=== PATIENT | female | born 1950 | race Two or more races ===

== ENCOUNTER 2019-12-10 11:03 | Emergency (ER) | payer OTHER, MEDICAID ==
[~2019-12-10] VITALS: Ht 152.4 cm; Wt 77.1 kg
[~2019-12-10 11:03] MED LIST: ASPI81TA69 PO; BENA10TA9 PO; DILT180C9 PO; DOCO10CR2 EX; FOLI5CAP PO; HYDR-4188 PO; LOVA10TA54 PO; OMEP20CA74 PO
[2019-12-10 12:03] LABS: Urine Bacteria NONE SEEN /hpf (None Seen); Urine Blood Negative /uL (Negative); Urine Hyaline Cast FEW /lpf (0 - 2); Urine Specific Gravity 1.014 (1.001-1.035); Urine WBC 1 /hpf (0 - 5)
[2019-12-10 12:28] LABS: Basophils # (auto) 0 uL; Basophils % (auto) 1.4 % (0.0-2.0); Eosinophils # (auto) 0.1 uL; Eosinophils % (auto) 2.1 % (0.0-7.0); Hematocrit 35.6 % (36.0-46.0); Lymphocytes % (auto) 31.8 % (10.0-50.0); Mean Corpuscular Hemoglobin 32.4 pg (28.0-32.0); Mean Corpuscular Hgb Conc. 33.8 g/dL (32.0-36.0); Mean Corpuscular Volume 95.7 fL (80.0-100.0); Monocytes # (auto) 0.3 uL; Monocytes % (auto) 8.4 % (0.0-12.0); Neutrophils # (auto) 1.9 uL; Neutrophils % (auto) 56.3 % (37.0-80.0); Platelet Count (auto) 167 10^3/uL (140-450); Red Blood Cells 3.72 10^6/uL (4.0-5.20); White Blood Cell 3.3 10^3/uL (4.4-10.8)
[2019-12-10 12:42] LABS: Albumin 3.6 g/dL (3.4-5.0); BUN/Creatinine Ratio 11.7; Calcium 9.1 mg/dL (8.5-10.1); Potassium 4.3 mmol/L (3.5-5.1)
[2019-12-10 12:45] LABS: Bilirubin, Total 0.6 mg/dL (0.2-1.0); Total Protein 7.4 g/dL (6.4-8.2)
[2019-12-10 18:00] VITALS: BP 180/67
[2019-12-10] MEDS ORDERED: MORPHINE SULFATE 4 MG/ML SYR/VIAL IV ONE (18:15)
[2019-12-10] MEDS ORDERED: ONDANSETRON HCL 4 MG/2 ML VIAL IV ONE (18:15)
[2019-12-10] MEDS ORDERED: HYDROmorphone HCL 2 MG/ML VL IM ONE (18:45)
[2019-12-10] MEDS ORDERED: ONDANSETRON ODT 4 MG TAB PO ONE (18:45)
== END 2019-12-10 20:27 | disposition home or self-care (01) ==
LOC: ER 11:03
DX: L76.34 Postprocedural seroma of skin and subcutaneous tissue following other procedure (principal); J45.909 Unspecified asthma, uncomplicated; E78.5 Hyperlipidemia, unspecified; I10 Essential (primary) hypertension; Z90.49 Acquired absence of other specified parts of digestive tract; Z90.710 Acquired absence of both cervix and uterus; Z87.891 Personal history of nicotine dependence; Z86.73 Personal history of transient ischemic attack (TIA), and cerebral infarction without residual deficits
CPT/HCPCS: 36415; 72128; 72131; 80053; 81001; 85025; 96372; 99284; J1170; Q0162

== ENCOUNTER 2020-01-25 17:00 | Emergency (ER) | payer OTHER, MEDICAID ==
[~2020-01-25] VITALS: Ht 162.6 cm; Wt 69.9 kg
[2020-01-25] MEDS ORDERED: MORPHINE SULFATE 4 MG/ML SYR/VIAL IV ONE (18:45)
[2020-01-25] MEDS ORDERED: SODIUM CHLORIDE 0.9% 1,000 ML IV ONE (18:45)
[2020-01-25] MEDS ORDERED: ONDANSETRON HCL 4 MG/2 ML VIAL IV ONE (18:45)
[2020-01-25 19:32] LABS: Basophils # (auto) 0 10 ^3/uL (0-0.2); Basophils % (auto) 0.2 % (0.0-2.0); Eosinophils # (auto) 0.2 10 ^3/uL (0-0.8); Hematocrit 31.3 % (36.0-46.0); Hemoglobin 10.6 g/dL (12.2-16.2); Lymphocytes # (auto) 0.2 10 ^3/uL (0.4-5.4); Lymphocytes % (auto) 2.4 % (10.0-50.0); Mean Corpuscular Hemoglobin 31.6 pg (28.0-32.0); Mean Corpuscular Hgb Conc. 33.7 g/dL (32.0-36.0); Mean Corpuscular Volume 93.6 fL (80.0-100.0); Monocytes # (auto) 0.4 10 ^3/uL (0-1.3); Monocytes % (auto) 5.6 % (0.0-12.0); Neutrophils # (auto) 6.2 10 ^3/uL (1.6-8.6); Neutrophils % (auto) 88.8 % (37.0-80.0); Nucleated Red Blood Cells % 0.1 %; Platelet Count (auto) 200 10^3/uL (140-450); Red Blood Cells 3.34 10^6/uL (4.0-5.20); Red Cell Distribution Width 14.2 % (11.8-14.3)
[2020-01-25 19:49] LABS: Alanine Aminotransferase 17 U/L (13-56); Albumin 2.3 g/dL (3.4-5.0); Anion Gap 9 (5-15); Aspartate Aminotransferase 55 U/L (15-37); BUN/Creatinine Ratio 26.9; Blood Urea Nitrogen 46 mg/dL (7-18); Calcium 8.7 mg/dL (8.5-10.1); Carbon Dioxide 19 mmol/L (21-32); Chloride 103 mmol/L (98-107); GFR African American 38 mL/min; GFR Non-African American 31 mL/min; Glucose 113 mg/dL (74-106); Potassium 3.4 mmol/L (3.5-5.1); Sodium 131 mmol/L (136-145)
[2020-01-25 19:54] LABS: Alkaline Phosphatase 91 U/L (45-117); Bilirubin, Total 0.5 mg/dL (0.2-1.0); Total Protein 6.5 g/dL (6.4-8.2)
[2020-01-25 20:19] VITALS: BP 118/64
[2020-01-25 20:25] LABS: Urine WBC None Seen /hpf (0 - 5)
[2020-01-25 20:42] LABS: Urine Amorphous Crystal FEW /hpf (None Seen); Urine Bacteria FEW /hpf (None Seen); Urine Blood 2+ /uL (Negative); Urine Hyaline Cast MOD /lpf (0 - 2); Urine Mucus FEW (None Seen); Urine Specific Gravity 1.014 (1.001-1.035)
== END 2020-01-25 21:49 | disposition home or self-care (01) ==
LOC: ER 17:00
DX: M54.5 Low back pain (principal); G89.29 Other chronic pain; I13.0 Hypertensive heart and chronic kidney disease with heart failure and stage 1 through stage 4 chronic kidney disease, or unspecified chronic kidney disease; N18.9 Chronic kidney disease, unspecified; I50.9 Heart failure, unspecified; J45.909 Unspecified asthma, uncomplicated; E78.5 Hyperlipidemia, unspecified; Z90.49 Acquired absence of other specified parts of digestive tract; Z90.710 Acquired absence of both cervix and uterus; Z86.73 Personal history of transient ischemic attack (TIA), and cerebral infarction without residual deficits
CPT/HCPCS: 36415; 80053; 81001; 83880; 84484; 85025; 93005; 96361; 96374; 96375; 99285; J2270; J2405; J7030

== ENCOUNTER 2020-01-29 21:03 | Emergency (ER) | payer OTHER, MEDICAID ==
[~2020-01-29] VITALS: Ht 162.6 cm; Wt 77.1 kg
[2020-01-29] MEDS ORDERED: PIPERACILLIN-TAZOB 3.375GM 100 ML IV ONE (22:00)
[2020-01-29 22:58] LABS: Basophils # (auto) 0.1 10 ^3/uL (0-0.2); Basophils % (auto) 0.9 % (0.0-2.0); Eosinophils # (auto) 0 10 ^3/uL (0-0.8); Eosinophils % (auto) 0.1 % (0.0-7.0); Hematocrit 39.1 % (36.0-46.0); Hemoglobin 13.2 g/dL (12.2-16.2); Lymphocytes # (auto) 0.5 10 ^3/uL (0.4-5.4); Lymphocytes % (auto) 2.9 % (10.0-50.0); Mean Corpuscular Hemoglobin 31.6 pg (28.0-32.0); Mean Corpuscular Hgb Conc. 33.9 g/dL (32.0-36.0); Mean Corpuscular Volume 93.2 fL (80.0-100.0); Monocytes # (auto) 0.8 10 ^3/uL (0-1.3); Monocytes % (auto) 5.1 % (0.0-12.0); Neutrophils # (auto) 14.9 10 ^3/uL (1.6-8.6); Platelet Count (auto) 153 10^3/uL (140-450); Red Blood Cells 4.19 10^6/uL (4.0-5.20); Red Cell Distribution Width 14.6 % (11.8-14.3); White Blood Cell 16.4 10^3/uL (4.4-10.8)
[2020-01-29] MEDS ORDERED: OXYCODONE W/ ACETAMINOPHEN 5/325MG TABLET PO ONE (23:00)
[2020-01-29 23:16] LABS: Albumin 1.5 g/dL (3.4-5.0); Anion Gap 10 (5-15); BUN/Creatinine Ratio 39.5; Blood Urea Nitrogen 32 mg/dL (7-18); Carbon Dioxide 19 mmol/L (21-32); Chloride 106 mmol/L (98-107); GFR African American 90 mL/min; GFR Non-African American 74 mL/min; Glucose 127 mg/dL (74-106); Magnesium 1.8 mg/dL (1.6-2.6); Potassium 4.1 mmol/L (3.5-5.1); Sodium 135 mmol/L (136-145)
[2020-01-29 23:17] LABS: Lactic Acid w/Reflex 2.9 mmol/L (0.4-2.0)
[2020-01-29 23:19] LABS: Alanine Aminotransferase 17 U/L (13-56); Alkaline Phosphatase 116 U/L (45-117); Aspartate Aminotransferase 49 U/L (15-37); Bilirubin, Total 1.4 mg/dL (0.2-1.0); Total Protein 6.7 g/dL (6.4-8.2)
[2020-01-30] MEDS ORDERED: CLINDAMYCIN 600MG IV 50 ML IV ONE (00:45)
[2020-01-30] MEDS ORDERED: ONDANSETRON HCL 4 MG/2 ML VIAL IV ONE (03:15)
[2020-01-30] MEDS ORDERED: HYDROmorphone HCL 2 MG/ML VL IV ONE (03:15)
[2020-01-30] MEDS ORDERED: SODIUM CHLORIDE 0.9% 2,000 ML IV ONE (03:45)
[2020-01-30 04:31] LABS: INR 1.23 (0.9-1.15); Partial Thromboplastin Time 30.9 sec (23.64-32.05)
[2020-01-30] MEDS ORDERED: HEPARIN DRIP/D5W 100UNITS/ML 250 ML IV SCH ×3 (04:38→04:49)
[2020-01-30] MEDS ORDERED: HEPARIN SODIUM (PORCINE) 5000 UNITS/ML 1ML VIAL IV ONE (04:45)
[2020-01-30 05:12] VITALS: BP 102/44
[2020-01-30 05:44] LABS: Basophils # (auto) 0 10 ^3/uL (0-0.2); Basophils % (auto) 0.3 % (0.0-2.0); Eosinophils # (auto) 0 10 ^3/uL (0-0.8); Eosinophils % (auto) 0.1 % (0.0-7.0); Hematocrit 31.2 % (36.0-46.0); Hemoglobin 10.7 g/dL (12.2-16.2); Lymphocytes # (auto) 0.5 10 ^3/uL (0.4-5.4); Lymphocytes % (auto) 4.8 % (10.0-50.0); Mean Corpuscular Hemoglobin 31.8 pg (28.0-32.0); Mean Corpuscular Hgb Conc. 34.3 g/dL (32.0-36.0); Mean Corpuscular Volume 92.9 fL (80.0-100.0); Monocytes # (auto) 0.7 10 ^3/uL (0-1.3); Monocytes % (auto) 6.7 % (0.0-12.0); Neutrophils % (auto) 88.1 % (37.0-80.0); Platelet Count (auto) 119 10^3/uL (140-450); Red Blood Cells 3.36 10^6/uL (4.0-5.20); Red Cell Distribution Width 14.8 % (11.8-14.3); White Blood Cell 10.2 10^3/uL (4.4-10.8)
[2020-01-30] MEDS ORDERED: SODIUM CHLOR 0.9% PF (SALINE LOCK) 10ML VIAL/SYR IV SCH (06:00)
[2020-01-31] MEDS ORDERED: ASPirin 81 mg TAB PO SCH (10:00)
== END 2020-01-30 05:30 | disposition short-term general hospital (02) ==
LOC: EDBD 21:03 → ER 21:06
DX: I24.9 Acute ischemic heart disease, unspecified (principal); R07.89 Other chest pain; M19.90 Unspecified osteoarthritis, unspecified site; J45.909 Unspecified asthma, uncomplicated; E78.5 Hyperlipidemia, unspecified; Z86.73 Personal history of transient ischemic attack (TIA), and cerebral infarction without residual deficits; Z88.2 Allergy status to sulfonamides; Z91.041 Radiographic dye allergy status
CPT/HCPCS: 36415; 72131; 80053; 83605; 83735; 84484; 85025; 85610; 85730; 93005; 96365; 96366; 96368; 96375; 99285; J2543; J7030

== ENCOUNTER 2023-04-16 22:10 | Emergency (ER) | payer OTHER, MEDICAID ==
[~2023-04-16] VITALS: Ht 152.4 cm; Wt 86.3 kg
[~2023-04-16 22:10] MED LIST changes: +BENA-19 PO; -BENA10TA9 PO
[2023-04-16 22:23] VITALS: BP 147/80
[2023-04-17] MEDS ORDERED: OXYC-963 PO ×2 (02:08)
[2023-04-17] MEDS ORDERED: OXYCODONE W/ ACETAMINOPHEN 5/325MG TABLET PO ONE (02:15)
[2023-04-18] MEDS ORDERED: PERCOT PO ×3 (18:34→23:49)
== END 2023-04-17 02:26 | disposition home or self-care (01) ==
LOC: ER 22:14
DX: M25.562 Pain in left knee (principal); F41.9 Anxiety disorder, unspecified; E78.5 Hyperlipidemia, unspecified; I11.0 Hypertensive heart disease with heart failure; I50.89 Other heart failure; Z90.710 Acquired absence of both cervix and uterus; Z87.891 Personal history of nicotine dependence; Z88.2 Allergy status to sulfonamides; Z91.040 Latex allergy status; Z79.899 Other long term (current) drug therapy; Z86.73 Personal history of transient ischemic attack (TIA), and cerebral infarction without residual deficits
CPT/HCPCS: 73562

== ENCOUNTER 2023-07-08 12:57 | Inpatient (IN) | payer OTHER, MEDICAID ==
[~2023-07-08] VITALS: Ht 152.4 cm; Wt 87.2 kg
[~2023-07-08 12:57] MED LIST changes: +PERCOT PO
[2023-07-08 16:36] LABS: Basophils # (auto) 0.1 10 ^3/uL (0-0.2); Basophils % (auto) 0.7 % (0.0-2.0); Eosinophils # (auto) 0.2 10 ^3/uL (0-0.8); Eosinophils % (auto) 2.6 % (0.0-7.0); Hematocrit 34.1 % (36.0-46.0); Hemoglobin 11.1 g/dL (12.2-16.2); Lymphocytes # (auto) 1.1 10 ^3/uL (0.4-5.4); Lymphocytes % (auto) 12.4 % (10.0-50.0); Mean Corpuscular Hemoglobin 30.4 pg (28.0-32.0); Mean Corpuscular Hgb Conc. 32.5 g/dL (32.0-36.0); Mean Corpuscular Volume 93.6 fL (80.0-100.0); Monocytes # (auto) 0.6 10 ^3/uL (0-1.3); Monocytes % (auto) 6.8 % (0.0-12.0); Neutrophils % (auto) 77.5 % (37.0-80.0); Nucleated Red Blood Cells % 0.1 %; Red Blood Cells 3.65 10^6/uL (4.0-5.20); Red Cell Distribution Width 14.2 % (11.8-14.3)
[2023-07-08 17:05] LABS: Alanine Aminotransferase 15 U/L (7-40); Albumin 4.1 g/dL (3.2-4.8); Alkaline Phosphatase 136 U/L (46-116); Anion Gap 7.7 (5-15); Aspartate Aminotransferase 24 U/L (13-40); BUN/Creatinine Ratio 18.6 (10.0-20.0); Bilirubin, Total 0.4 mg/dL (0.2-1.0); Blood Urea Nitrogen 16 mg/dL (9-23); Carbon Dioxide 20.3 mmol/L (20-30); Chloride 106 mmol/L (98-107); Glucose 105 mg/dL (74-106); Potassium 4.7 mmol/L (3.5-5.1); Sodium 134 mmol/L (136-145); Total Protein 6.5 g/dL (5.7-8.2)
[2023-07-08 17:13] LABS: CRP High Sensitivity 13.23 mg/dL (<1.0)
[2023-07-08 17:39] LABS: Erythrocyte Sedimentation Rate 94 mm/hr (0-20)
[2023-07-08] MEDS ORDERED: VANCOMYCIN 1GM/250ML 250 ML IV ONE (20:45)
[2023-07-08 21:48] LABS: Urine Bacteria NONE SEEN /hpf (None Seen); Urine Blood Negative /uL (Negative); Urine Clarity Clear (Clear); Urine Color Yellow (Yellow); Urine Hyaline Cast FEW /lpf (0 - 2); Urine Protein, UAD 1+ (Negative); Urine Specific Gravity 1.024 (1.001-1.035); Urine WBC 2 /hpf (0 - 5); Urine pH 5.5 (5.0-8.0)
[2023-07-08] MEDS ORDERED: HYDROcodone-ACET 10/325MG TAB PO ONE (23:00)
[2023-07-08] MEDS ORDERED: VANCOMYCIN PER PHARMACY 0 MG IV SCH (23:00)
[2023-07-08] MEDS ORDERED: ACETAMINOPHEN 325 MG TAB PO PRN (23:00)
[2023-07-08] MEDS ORDERED: ONDANSETRON HCL 4 MG/2 ML VIAL IV PRN (23:00)
[2023-07-08] MEDS ORDERED: ALBUTEROL SULF 2.5 MG/0.5ML(0.5%) NEB SOLN NEB PRN (23:15)
[2023-07-08] MEDS ORDERED: IPRATROPIUM BROM 0.5 MG/2.5ML INH SOL NEB PRN (23:15)
[2023-07-09] VITALS (9 sets, daily range): BP systolic 115–157; BP diastolic 50–63; PULSE 74–88; RESP 13–20; TEMP 97.9–98.5; O2SAT 92–97
[2023-07-09] MEDS: HYDROcodone-ACET 10/325MG TAB PO PRN ×3 (05:28→14:20)
[2023-07-09 06:47] LABS: Basophils # (auto) 0.1 10 ^3/uL (0-0.2); Eosinophils # (auto) 0.1 10 ^3/uL (0-0.8); Hemoglobin 10.9 g/dL (12.2-16.2)
[2023-07-09 06:49] LABS: Basophils % (auto) 1.1 % (0.0-2.0); Lymphocytes # (auto) 0.8 10 ^3/uL (0.4-5.4); Lymphocytes % (auto) 10.9 % (10.0-50.0); Mean Corpuscular Hemoglobin 30.5 pg (28.0-32.0); Mean Corpuscular Hgb Conc. 32.9 g/dL (32.0-36.0); Mean Corpuscular Volume 92.8 fL (80.0-100.0); Monocytes # (auto) 0.4 10 ^3/uL (0-1.3); Monocytes % (auto) 5.8 % (0.0-12.0); Neutrophils # (auto) 6.3 10 ^3/uL (1.6-8.6); Neutrophils % (auto) 81.2 % (37.0-80.0); Nucleated Red Blood Cells % 0.2 %; Red Blood Cells 3.56 10^6/uL (4.0-5.20); White Blood Cell 7.7 10^3/uL (4.4-10.8)
[2023-07-09 07:02] LABS: Alanine Aminotransferase 14 U/L (7-40); Albumin 4.3 g/dL (3.2-4.8); Alkaline Phosphatase 129 U/L (46-116); Anion Gap 11.9 (5-15); Aspartate Aminotransferase 25 U/L (13-40); Blood Urea Nitrogen 16 mg/dL (9-23); Calcium 9.4 mg/dL (8.5-10.1); Carbon Dioxide 18.1 mmol/L (20-30); Chloride 102 mmol/L (98-107); Cholesterol 126 mg/dL (< 200); Glucose 117 mg/dL (74-106); HDL Cholesterol 36 mg/dL (40-59); LDL Cholesterol 74 mg/dL (< 100); Potassium 4.8 mmol/L (3.5-5.1); Sodium 132 mmol/L (136-145); Triglycerides 84 mg/dL (< 150)
[2023-07-09 07:03] LABS: Bilirubin, Total 0.5 mg/dL (0.2-1.0); Total Protein 7.5 g/dL (5.7-8.2)
[2023-07-09 07:19] LABS: INR 1.08 (0.9-1.15); Partial Thromboplastin Time 32.3 SEC (24.5-34.5); Prothrombin Time 11.3 sec (9.3-11.8)
[2023-07-09 08:51] LABS: COVID19 ANTIGEN SOFIA FIA NEGATIVE (NEGATIVE)
[2023-07-09 08:51] LABS: Rapid Influenza A Negative (Negative); Rapid Influenza B Negative (Negative)
[2023-07-09] MEDS: ASPirin 81 mg TAB PO SCH (09:31)
[2023-07-09] MEDS: FOLIC ACID 1 MG TAB PO SCH (09:31)
[2023-07-09] MEDS: hydrOXYchloroQUINE SULFATE 200 MG TAB PO SCH ×2 (09:32→21:08)
[2023-07-09] MEDS: BENAZEPRIL HCL 10 MG TAB PO SCH (09:32)
[2023-07-09] MEDS: dilTIAZem HCL 180MG ER CAP PO SCH (09:32)
[2023-07-09] MEDS ORDERED: OMEPRAZOLE 40MG/20ML ORAL SUSP PO SCH (10:00)
[2023-07-09] MEDS ORDERED: TEMA7.5C PO (17:14)
[2023-07-09] MEDS: VANCOMYCIN 1GM/250ML 250 ML IV SCH (17:58)
[2023-07-09] MEDS: ATORVASTATIN 20 MG TAB PO SCH (21:08)
[2023-07-09] MEDS: HYDROmorphone HCL 2 MG/ML VL/or syr IV PRN (21:09)
[2023-07-10] VITALS (10 sets, daily range): BP systolic 83–135; BP diastolic 41–52; PULSE 59–86; RESP 16–20; TEMP 97.8–98.4; O2SAT 91–98
[2023-07-10] MEDS: HYDROmorphone HCL 2 MG/ML VL/or syr IV PRN ×3 (05:57→23:18)
[2023-07-10] MEDS: OMEPRAZOLE-SOD BICARB 20 MG POWDER PO SCH (10:00)
[2023-07-10] MEDS: VANCOMYCIN 1GM/250ML 250 ML IV SCH (10:01)
[2023-07-10] MEDS: dilTIAZem HCL 180MG ER CAP PO SCH (10:02)
[2023-07-10] MEDS: FOLIC ACID 1 MG TAB PO SCH (10:02)
[2023-07-10] MEDS: hydrOXYchloroQUINE SULFATE 200 MG TAB PO SCH ×2 (10:03→21:37)
[2023-07-10] MEDS: ASPirin 81 mg TAB PO SCH (10:03)
[2023-07-10] MEDS: BENAZEPRIL HCL 10 MG TAB PO SCH (10:03)
[2023-07-10] MEDS: ATORVASTATIN 20 MG TAB PO SCH (21:37)
[2023-07-11] VITALS (8 sets, daily range): BP systolic 107–128; BP diastolic 28–89; PULSE 61–72; RESP 16–20; TEMP 97.7–98.3; O2SAT 94–98
[2023-07-11] MEDS: VANCOMYCIN 1GM/250ML 250 ML IV SCH (01:00)
[2023-07-11] MEDS: FOLIC ACID 1 MG TAB PO SCH (08:55)
[2023-07-11] MEDS: ASPirin 81 mg TAB PO SCH (08:56)
[2023-07-11] MEDS: hydrOXYchloroQUINE SULFATE 200 MG TAB PO SCH ×2 (09:04→21:17)
[2023-07-11] MEDS: HYDROcodone-ACET 5/325MG TAB PO PRN ×3 (09:04→18:27)
[2023-07-11] MEDS: dilTIAZem HCL 180MG ER CAP PO SCH (10:00)
[2023-07-11] MEDS: BENAZEPRIL HCL 10 MG TAB PO SCH (10:00)
[2023-07-11] MEDS: OMEPRAZOLE-SOD BICARB 20 MG POWDER PO SCH (16:57)
[2023-07-11] MEDS ORDERED: VANCOMYCIN 500 MG in D5W 5% 100 ML IV SCH (17:00)
[2023-07-11] MEDS: ATORVASTATIN 20 MG TAB PO SCH (21:17)
[2023-07-11] MEDS: HYDROmorphone HCL 2 MG/ML VL/or syr IV PRN (21:18)
[2023-07-12 04:10] VITALS: BP 124/55; PULSE 78; RESP 16; O2SAT 94
[2023-07-12 05:00] VITALS: BP 133/47; PULSE 73; RESP 17; TEMP 98.1; O2SAT 94
[2023-07-12] MEDS: HYDROmorphone HCL 2 MG/ML VL/or syr IV PRN (06:57)
[2023-07-12 09:00] VITALS: BP 138/54; PULSE 79; RESP 16; TEMP 97.7; O2SAT 96
[2023-07-12] MEDS: hydrOXYchloroQUINE SULFATE 200 MG TAB PO SCH (09:26)
[2023-07-12] MEDS: BENAZEPRIL HCL 10 MG TAB PO SCH (09:28)
[2023-07-12] MEDS: ASPirin 81 mg TAB PO SCH (09:29)
[2023-07-12] MEDS: FOLIC ACID 1 MG TAB PO SCH (09:29)
[2023-07-12] MEDS: OMEPRAZOLE-SOD BICARB 20 MG POWDER PO SCH (09:30)
[2023-07-12] MEDS: dilTIAZem HCL 180MG ER CAP PO SCH (09:30)
[2023-07-12 10:09] VITALS: O2SAT 96
[2023-07-12 10:10] VITALS: O2SAT 96
[2023-07-12 10:51] VITALS: BP 138/54; PULSE 79; TEMP 36.7
== END 2023-07-12 12:10 | disposition home or self-care (01) | DRG 540 ==
LOC: ER 12:57 → OVERFLOW 22:56 → WEST WING 07-09 15:26
PROVIDERS: ADMIT Nurse Practitioner Family; ATTEND Family Medicine
DX: M46.27 Osteomyelitis of vertebra, lumbosacral region (principal); L02.212 Cutaneous abscess of back [any part, except buttock and flank]; T81.30XA Disruption of wound, unspecified, initial encounter; E78.5 Hyperlipidemia, unspecified; J45.909 Unspecified asthma, uncomplicated; I71.40 Abdominal aortic aneurysm, without rupture, unspecified; M06.9 Rheumatoid arthritis, unspecified; B95.62 Methicillin resistant Staphylococcus aureus infection as the cause of diseases classified elsewhere; I11.0 Hypertensive heart disease with heart failure; Z20.822 Contact with and (suspected) exposure to COVID-19; Y83.8 Other surgical procedures as the cause of abnormal reaction of the patient, or of later complication, without mention of misadventure at the time of the procedure; I50.9 Heart failure, unspecified; Z96.659 Presence of unspecified artificial knee joint; F41.9 Anxiety disorder, unspecified; M54.50 Low back pain, unspecified; K21.9 Gastro-esophageal reflux disease without esophagitis; Z82.5 Family history of asthma and other chronic lower respiratory diseases; Z83.3 Family history of diabetes mellitus; Z86.73 Personal history of transient ischemic attack (TIA), and cerebral infarction without residual deficits; Z82.49 Family history of ischemic heart disease and other diseases of the circulatory system; Z82.3 Family history of stroke; Z90.710 Acquired absence of both cervix and uterus; Z79.2 Long term (current) use of antibiotics; Z91.041 Radiographic dye allergy status; Y92.89 Other specified places as the place of occurrence of the external cause
CPT/HCPCS: 36415; 71045; 72131; 72148; 80053; 80061; 80202; 81001; 82565; 84443; 85025; 85610; 85652; 85730; 86141; 87040; 87077; 87186; 87205; 87426; 87804; 94640; G0378; J7060

== ENCOUNTER 2023-08-02 17:37 | Emergency (ER) | payer OTHER, MEDICAID ==
[~2023-08-02] VITALS: Ht 152.4 cm; Wt 77.5 kg
[~2023-08-02 17:37] MED LIST changes: -DOCO10CR2 EX; +TEMA7.5C PO
[2023-08-02 17:50] VITALS: BP 126/62; PULSE 76; RESP 20; TEMP 98.6; O2SAT 98
== END 2023-08-02 18:40 | disposition home or self-care (01) ==
LOC: ER 17:37
DX: T81.89XA Other complications of procedures, not elsewhere classified, initial encounter (principal); F41.9 Anxiety disorder, unspecified; M19.90 Unspecified osteoarthritis, unspecified site; I11.0 Hypertensive heart disease with heart failure; I50.9 Heart failure, unspecified; E78.5 Hyperlipidemia, unspecified; Z86.73 Personal history of transient ischemic attack (TIA), and cerebral infarction without residual deficits; Z90.710 Acquired absence of both cervix and uterus; Z98.890 Other specified postprocedural states; Z87.891 Personal history of nicotine dependence; Z91.040 Latex allergy status; Z88.2 Allergy status to sulfonamides; Z79.1 Long term (current) use of non-steroidal anti-inflammatories (NSAID); Z79.899 Other long term (current) drug therapy; Z79.82 Long term (current) use of aspirin; Y92.89 Other specified places as the place of occurrence of the external cause

== ENCOUNTER 2024-12-22 13:23 | Emergency (ER) | payer OTHER, MEDICAID ==
[~2024-12-22] VITALS: Ht 152.4 cm; Wt 81.8 kg
[~2024-12-22 13:23] MED LIST changes: -BENA-19 PO; +BENA10TA90 PO; -HYDR-4188 PO; +HYDR-4491 PO
[2024-12-22] MEDS ORDERED: CLINDAMYCIN 600MG IV 50 ML IV ONE (13:30)
--- NOTE | 2024-12-22 13:39 | ED.PDOC ---
History of Present Illness(SKN HPI Comments 74 y/o F, with PMHX of MRSA brought in by ambulance presents to the ED for CC of wound check. Patient states, having a wound to the lower lumbar area of her spine following cervical surgery x1year. Patent comments on, wound opening up today with nieves colored foul smelling drainage. Patient endorses on, being noncompliant with follow up appointments following cervical surgery. Per EMS, drained approximately 100-150cc from the area. Patient currently complains of back pain. Patient denies fever, cough chills, or body-aches. No other symptoms or modifying factors at this time. Chief Complaint: Wound Check Time Seen by MD: 13:10 Primary Care Provider: SCOTT History of Present Illness: Nurses Notes, Custodial Aide Notes, Medications, Allergies Allergies: Coded Allergies: Iodine (Verified Allergy, Severe, RASH AND BLISTERS, ITCHING AFTER RECEIVING IV CONTRAST W CT, 01/25/20) Sulfa Antibiotics (Verified Allergy, Unknown, 01/25/20) Home Meds Active Scripts Oxycodone W/ Acetaminophen (Percocet 5/325MG) 1 Tab Tb, 1 TAB PO Q4HP PRN, #20 TAB 0 Refills Prov:CLAUDIO STEWART 04/18/23 Reported Medications Temazepam (Restoril) 7.5 Mg Cap, 7.5 MG PO, CAP 07/09/23 Omeprazole (PRILOSEC) 20 Mg Cap, 1 CAP PO DAILY, #90 CAP 1 Refill 12/09/14 Lovastatin (Lovastatin) 10 Mg Tab, 10 MG PO, TAB 12/09/14 Folic Acid (Folic Acid) Unknown Strength Cap, PO, CAP 12/09/14 Benazepril Hcl (Benazepril Hcl) 10 Mg Tab, 1 TAB PO DAILY, #30 TAB 5 Refills 12/09/14 Aspirin (Aspirin) 81 Mg Tab, 81 MG PO DAILY, TAB 12/09/14 Diltiazem Hcl (Diltiazem Hcl) 180MG/24 Cap, 1 24 PO, CAP 12/09/14 Hydroxychloroquine Sulfate (PLAQUENIL) 200 Mg Tab, 1 TAB PO BID, #180 TAB 3 Refills 12/09/14 Information Source: Patient, Emergency Med Personnel Mode of Arrival: EMS Severity: Moderate Timing: Days Duration: Since onset Prehospital treatment: None Location: Back Mechanism: Preceding Wound Object: None Condition of Object: None Wound Type: None History of: None Associated Signs and Symptoms: Redness, Swelling, Pus Past Medical History PAST MEDICAL HISTORY: Anxiety, Arthritis, CHF, High Lipids, HTN, TIA Surgical History: Hysterectomy [employer] History: No Pertinent [employer] History Family History Family History: Reviewed,noncontributory to illness Social History Smoker: Non-Smoker, Quit Greater Than 1 Year Alcohol: Occasionally Drugs: Denies Drug Use Lives In: Home Constitutional: denies: chills, diaphoresis, fatigue, fever, malaise, sweats, weakness, others EENTM: denies: blurred vision, double vision, ear bleeding, ear discharge, ear drainage, ear pain, ear ringing, eye pain, eye redness, hearing loss, mouth pain, mouth swelling, nasal discharge, nose bleeding, nose congestion, nose pain, photophobia, tearing, throat pain, throat swelling, voice changes, others Respiratory: denies: cough, hemoptysis, orthopnea, SOB at rest, shortness of breath, SOB with excertion, stridor, wheezing, others Cardiovascular: denies: chest pain, dizzy spells, diaphoresis, Dyspnea on exertion, edema, irregular heart beat, left arm pain, lightheadedness, palpitations, PND, syncope, others Gastrointestinal: denies: abdomen distended, abdominal pain, blood streaked bowels, constipated, diarrhea, dysphagia, difficulty swallowing, hematemesis, melena, nausea, poor appetite, poor fluid intake, rectal bleeding, rectal pain, vomiting, others Genitourinary: denies: abnormal vagina bleeding, burning, dyspareunia, dysuria, flank pain, frequency, hematuria, incontinence, pain, , vagina dischar ge, urgency, others Neurological: denies: dizziness, fainting, headache, left sided numbness, left sided weakness, numbness, paresthesia, pre-existing deficit, right sided numbness, right sided weakness, seizure, speech problems, tingling, tremors, weakness, others Musculoskeletal: denies: back pain, gout, joint pain, joint swelling, muscle pain, muscle stiffness, neck pain, others Integumetry: reports: others (abscess); denies: bruises, change in color, change in hair/nails, dryness, laceration, lesions, lumps, rash, wounds Allergic/Immunocompromised: denies: Difficulty Healing, Frequent Infections, Hives, Itching, others Hematologic/Lymphatic: denies: anemia, blood clots, easy bleeding, easy bruising, swollen glands, others Endocrine: denies: excessive hunger, excessive sweating, excessive thirst, excessive urination, flushing, intolerance to cold, intolerance to heat, unexplained weight gain, unexplained weight loss, others Psychiatric: denies: anxiety, bipolar disorder, depression, hopeless, panic disorder, schizophrenia, sleepless, suicidal, others All Other Systems: Reviewed and Negative Physical Exam General Appearance: Moderate Distress HEENT: Normal ENT Inspection, Pharynx Normal, TMs Normal Neck: Full Range of Motion, Non-Tender, Normal, Normal Inspection Respiratory: Chest Non-Tender, Lungs Clear, No Accessory Muscle Use, No Respiratory Distress, Normal Breath Sounds Cardiovascular: No Edema, No JVD, No Murmur, No Gallop, Normal Peripheral Pulses, Regular Rate/Rhythm Breast Exam: Deferred Gastrointestinal: No Organomegaly, Non Tender, No Pulsatile Mass, Normal Bowel Sounds, Soft Genitalia: Deferred Pelvic: Deferred Rectal: Deferred Extremities: No calf tenderness, Normal capillary refill, Normal inspection, Normal range of motion, Non-tender, No pedal edema Musculoskeletal : Apperance: Normal Neurologic: Alert, carpet cleaner II-XII nml as Tested, No Motor Deficits, Normal Affect, Normal Mood, No Sensory Deficits Cerebellar Function: NOT DONE Reflexes: NOT DONE Skin: Dry, Normal Color, Warm, Wounds (Upper lumbar spine) Peripheral Pulses: 3+ Radial (R), 3+ Radial (L) Lymphatic: No Adenopathy Was a procedure done? Was a procedure done?: No Differential Diagnosis (INTG) Differential Diagnosis: Cellulitis Differential Diagnosis: Abscess X-Ray, Labs, Meds, VS Vital Signs Date Time Temp Pulse Resp B/P (MAP) Pulse Ox O2 Delivery O2 Flow Rate FiO2 12/22/24 13:23 98.1 100 16 119/72 (88) 95 Lab Test 12/22/24 13:54 Range/Units White Blood Count 10.5 4.4-10.8 10^3/uL Red Blood Count 3.30 L 4.0-5.20 10^6/uL Hemoglobin 10.6 L 12.2-16.2 g/dL Hematocrit 32.0 L 36.0-46.0 % Mean Corpuscular Volume 96.9 80.0-100.0 fL Mean Corpuscular Hemoglobin 32.0 28.0-32.0 pg Mean Corpuscular Hemoglobin Concent 33.1 32.0-36.0 g/dL Red Cell Distribution Width 13.5 11.8-14.3 % Platelet Count 341 140-450 10^3/uL Mean Platelet Volume 7.5 6.9-10.8 fL Neutrophils (%) (Auto) 79.3 37.0-80.0 % Lymphocytes (%) (Auto) 9.8 L 10.0-50.0 % Monocytes (%) (Auto) 7.8 0.0-12.0 % Eosinophils (%) (Auto) 2.5 0.0-7.0 % Basophils (%) (Auto) 0.6 0.0-2.0 % Neutrophils # (Auto) 8.3 1.6-8.6 10 ^3/uL Lymphocytes # (Auto) 1.0 0.4-5.4 10 ^3/uL Monocytes # (Auto) 0.8 0-1.3 10 ^3/uL Eosinophils # (Auto) 0.3 0-0.8 10 ^3/uL Basophils # (Auto) 0.1 0-0.2 10 ^3/uL Nucleated Red Blood Cells 0.0 % Sodium Level 132 L 136-145 mmol/L Potassium Level 4.6 3.5-5.1 mmol/L Chloride Level 102 98-107 mmol/L Carbon Dioxide Level 23 20-31 mmol/L Anion Gap 7 5-15 Blood Urea Nitrogen 17 9-23 mg/dL Creatinine 1.03 H 0.550-1.02 mg/dL Glomerular Filtration Rate Calc 57 >90 mL/min BUN/Creatinine Ratio 16.5 10.0-20.0 Serum Glucose 103 74-106 mg/dL Lactic Acid Level 0.9 0.4-2.0 mmol/L Calcium Level 8.7 8.7-10.4 mg/dL Patient alert. Complaining of having seeping from her back. Vitals stable. Answering all questions. Moving all extremities. Prior to coming 150 cc of pus was drained. She has a history of abscess in the back. Reviewed her previous visit. WBC within normal limits. Was given Rocephin. Was given clindamycin. Explained to the patient. Continue cardiac monitoring. Time of 1ST Reevaluation: 13:40 Reevaluation 1ST: Unchanged Patient Education/Counseling: Diagnosis, Treatment Family Education/Counseling: No Family Present Additional Information I reviewed the following notes from patient's past medical encounters: 08/02/23 DX:POST OPERATIVE COMPLICATION The following tests were ordered, and results were reviewed by me: CBC, UA, BMP, LACTIC ACID Additional Information was gathered from interviewing the following independent historians: EMT I discussed treatment and results with medical personnel and: PATIENT Departure 1 Departure Time of Disposition: 14:45 Impression: Primary Impression: Osteomyelitis Qualified Codes: M86.9 - Osteomyelitis, unspecified Additional Impression: Abscess Disposition: ADMITTED INPATIENT Admit to: Med Surg Condition: Guarded Critical Care Note Critical Care Time?: No Stability Stability form required: No Heart Score Heart Score: Heart Score Response (Comments) Value History N/A 0 EKG N/A 0 Age N/A 0 Risk Factors N/A 0 Troponin N/A 0 Total 0 I personally scribed for BEBE RAMIREZ MD ([email or web address]) on 12/22/24 at 13:39. Electronically submitted by Gianna Garrett ([email or web address]). I personally scribed for BEBE RAMIREZ MD ([email or web address]) on 12/22/24 at 13:46. Electronically submitted by Gianna Garrett ([email or web address]). I personally scribed for BEBE RAMIREZ MD ([email or web address]) on 12/22/24 at 15:31. Electronically submitted by Gianna Garrett ([email or web address]). BEBE RAMIREZ MD Dec 22, 2024 13:39
[2024-12-22 14:26] LABS: Basophils # (auto) 0.1 10 ^3/uL (0-0.2); Basophils % (auto) 0.6 % (0.0-2.0); Eosinophils # (auto) 0.3 10 ^3/uL (0-0.8); Eosinophils % (auto) 2.5 % (0.0-7.0); Hemoglobin 10.6 g/dL (12.2-16.2); Lymphocytes % (auto) 9.8 % (10.0-50.0); Mean Corpuscular Hgb Conc. 33.1 g/dL (32.0-36.0); Mean Corpuscular Volume 96.9 fL (80.0-100.0); Monocytes # (auto) 0.8 10 ^3/uL (0-1.3); Monocytes % (auto) 7.8 % (0.0-12.0); Neutrophils # (auto) 8.3 10 ^3/uL (1.6-8.6); Neutrophils % (auto) 79.3 % (37.0-80.0); Platelet Count (auto) 341 10^3/uL (140-450); Red Cell Distribution Width 13.5 % (11.8-14.3); White Blood Cell 10.5 10^3/uL (4.4-10.8)
[2024-12-22 14:29] LABS: Chloride 102 mmol/L (98-107); Potassium 4.6 mmol/L (3.5-5.1)
[2024-12-22 14:30] LABS: Anion Gap 7 (5-15); Calcium 8.7 mg/dL (8.7-10.4); Carbon Dioxide 23 mmol/L (20-31)
[2024-12-22 14:35] LABS: BUN/Creatinine Ratio 16.5 (10.0-20.0); Blood Urea Nitrogen 17 mg/dL (9-23); Glucose 103 mg/dL (74-106); Sodium 132 mmol/L (136-145)
[2024-12-22] MEDS: cefTRIAXone 1GM/50ML D5W 50 ML IV ONE (16:14)
[2024-12-22] MEDS: HYDROcodone-ACET 10/325MG TAB PO ONE ×2 (16:49→20:37)
[2024-12-22] MEDS: CLINDAMYCIN 600MG IV 50 ML IV ONE (17:42)
[2024-12-22 18:05] LABS: Urine Bacteria None Seen /hpf (None Seen)
[2024-12-22 18:18] LABS: Urine Blood Negative /uL (Negative); Urine Clarity Turbid (Clear); Urine Color Yellow (Yellow); Urine Protein, UAD TRACE (Negative); Urine Specific Gravity 1.018 (1.001-1.035); Urine Squamous Epithelial Cell FEW /hpf (<5); Urine Urobilinogen 2 mg/dL (Negative); Urine WBC 25 /HPF (0-5)
--- NOTE | 2024-12-23 02:37 | DVH ---
EXAM: CT LS SPINE WO CONTRAST HISTORY: r/o abscess COMPARISON: CT LS SPINE WO CONTRAST on DOS: 07/08/23, LS SPINE WO CONTRAST on DOS: 01/29/20, LS SPINE W O CONTRAST on DOS: 12/10/19 CTDIvol 33.8 mGy, DLP 31 104 mGy*cm. TECHNIQUE: Multiple axial CT images of the spine were obtained using bone algorithm. Axial and coron al reformatting was done. Bone and soft tissue windows were reviewed. FINDINGS: There is a dextroconvex curvature of the thoracolumbar spine. The bones are generally osteopenic. Th e patient has undergone L5 S1 discectomy with interbody spacer device, screw fixation of the anterior aspect of the sacrum. Interbody spacer devices are noted at L2-3 and L3-4 as well as screw tracts wi thin the L3 and L4 vertebral bodies. The patient is post laminectomy from L2-L5. There is fluid noted within the subcutaneous tissues as well as within the laminectomy bed and deep posterior paraspinal soft tissues. Lack of intravenous contrast significantly limits assessment for drainable fluid collec tion.. There is a grade 1 L5-S1 spondylolisthesis. There is multilevel lumbar spondylosis noted with disc bulging and osteophyte, facet arthropathy and ligamentous thickening. 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 The findi ng was present on prior MRI imaging from 2022. IMPRESSION: 1. Postsurgical and spondylotic changes in the lumbar spine. 2. Posterior paraspinal fluid collections May relate to recent surgery. Lack of intravenous contrast limits assessment. 3. Dissecting aneurysm incidentally noted at the aortic hiatus measuring 4.1 cm. The finding was pre sent in 2022..
--- NOTE | 2024-12-23 04:15 | DVH ---
EXAM: CT THORACIC SPINE WO CONTRAS INDICATION: r/o abscess COMPARISON: THORACIC SPINE WO CONTRAS on DOS: 12/10/19 TECHNIQUE: Multiple axial CT images of the thoracic spine were obtained using bone algorithm. Axial and coronal reformatting was done. Bone and soft tissue windows were reviewed. Radiation Dose Information: CT Dose: CTDI volume is 35.91 mGy. Dose-length product is 3104.02 mGy*cm FINDINGS: No CT evidence of acute fracture or traumatic mal-alignment. The visualized paraspinal soft tissues a re grossly unremarkable. [id number] There is multilevel degenerative change of the spine, with disc space narrowing, subchond ral sclerosis, and marginal osteophyte formation. IMPRESSION: No CT evidence of acute fracture or traumatic mal-alignment of the bony thoracic spine. At the level of L1 through L5, there is phlegmonous collection with foci of air measuring 3 cm. Infec tion can not be excluded. No evidence for osteomyelitis. Radiation optimization: All CT scans at this facility use at least one of these dose optimization brandon hniques: automated exposure control mA and/or kV adjustment per patient size (includes targeted exam s where dose is matched to clinical indication) or iterative reconstruction.
--- NOTE | 2024-12-23 05:51 | PRN ---
Misceleneous Note Note Note 74 with purulent drainage from spinal wound pending admission. Discussed with Dr. Lucia. Patient has been treated at [facility] in the past for this with wound vac. Recommendation is transfer for higher level of care/continuity of care. Will add on CT to r/o abscess. -[facility] is at capacity -05:[address] Granados at [facility], who states also at capacity RADHA HIDALGO MD Dec 22, 2024 23:38
[2024-12-23] MEDS ORDERED: ACETAMINOPHEN 325 MG TAB PO PRN (09:45)
[2024-12-23] MEDS ORDERED: HYDROcodone-ACET 5/325MG TAB PO PRN (09:45)
[2024-12-23] MEDS ORDERED: ONDANSETRON HCL 4 MG/2 ML VIAL IV PRN (09:45)
--- NOTE | 2024-12-23 09:49 | DVHHP2 ---
History of Present Illness Reason for Visit: Back pain History of Present Illness Destini Meza is a 74-year-old female with past medical history of hypertension, hyperlipidemia, asthma, CHF, GERD, rheumatoid arthritis, MRSA, TIA, TKA, lumbar spine 0 surgery 5 years ago in April of 2019 and January of 2020 revision at [facility], scoliosis, and hysterectomy who presents to the ED for right lower back pain constant 6/10. Patient states that her family member was helping her clean the side and noticed that the blister had popped and was draining greenish foul- smelling fluid. Patient reports that she has been noncompliant with her follow up appointments. Patient also reports that she quit smoking, uses alcohol occasionally, and takes gummies. Patient denies any fever, chills, lightheadedness, weakness, chest pain, shortness of breath, abdominal pain, nausea, vomiting, and diarrhea. Cardiovascular: CHF, HTN, hyperipidemia Pulmonary: Asthma ELECTRICIAN THIRD: TIA GI: GERD Past Medical History Rheumatoid arthritis MRSA Scoliosis Past Surgical History: Hysterectomy, Other (Lower back surgery), Total knee replacement Smoke: Quit ALCOHOL: occassional Drugs: Marijuana Lives: with Family Domestic Violence: Neg Review of Systems Constitutional: No: Fever, Chills, Sweats, Weakness, Malaise, Other Eyes: No: Pain, Vision change, Conjunctivae inflammation, Eyelid inflammation, Other, Redness ENT: No: Ear pain, Ear discharge, Nose pain, Nose discharge, Nose congestion, Mouth pain, Mouth swelling, Throat pain, Throat swelling, Other Respiratory: No: Cough, Dry, Shortness of breath, SOB with excertion, Wheezing, Hemoptysis, Pleuritic Pain, Sputum, Wheezing, Other Cardiovascular: No: Chest Pain, Palpitations, Orthopnea, Paroxysmal Noc. Dyspnea, Edema, Lt Headedness, Other Gastrointestinal: No: Nausea, Vomiting, Abdominal Pain, Diarrhea, Constipation, Melena, Hematochezia, Other Genitourinary: No Dysuria, No Frequency, No Incontinence, No Hematuria, No Retention, No Other Musculoskeletal: back pain; No: other, neck pain, shoulder pain, arm pain, hand pain, leg pain, foot pain Skin: Other (Popped blister); No: Rash, Lesions, Jaundice, Bruising Neurological: No: Weakness, Numbness, Incoordination, Change in speech, Confusion, Seizures, Other Allergies: Coded Allergies: Iodine (Verified Allergy, Severe, RASH AND BLISTERS, ITCHING AFTER RECEIVING IV CONTRAST W CT, 01/25/20) Sulfa Antibiotics (Verified Allergy, Unknown, 01/25/20) Exam Vital Signs Vital Signs Date Time Temp Pulse Resp B/P (MAP) Pulse Ox O2 Delivery O2 Flow Rate FiO2 12/23/24 08:05 97.9 91 18 140/59 (86) 92 97.9 12/23/24 07:50 Room Air* 0 21 General Appearance: Alert, Oriented X3, Cooperative, No acute distress HEENT: Atraumatic, PERRLA, EOMI, Mucous membr. moist/pink Respiratory: Clear to auscultation, Normal air movement Cardiovascular: Regular rate, Normal S1, Normal S2, No murmurs Abdominal: Normal bowel sounds, Soft, No tenderness, No hepatospenomegaly, No masses Extremities: No clubbing, No cyanosis, Normal pulses Neuro: Normal speech, Normal tone, Sensation intact Psych/Mental Status: Mental status NL, Mood NL Labs/Xrays Labs Test 12/22/24 17:29 12/22/24 13:54 Range/Units Urine Color Yellow Yellow Urine Clarity Turbid H Clear Urine pH 6.0 5.0-9.0 Urine Specific [place] 1.018 1.001-1.035 Urine Protein Trace H Negative Urine Ketones Negative Negative Urine Blood Negative Negative /uL Urine Nitrite Negative Negative Urine Bilirubin Negative Negative Urine Urobilinogen 2 H Negative mg/dL Urine Leukocyte Esterase 2+ Negative /uL Urine RBC 1 0 - 4 /hpf Urine Microscopic WBC 25 H 0-5 /HPF Urine Squamous Epithelial Cells Few <5 /hpf Urine Bacteria None seen None Seen /hpf Urine Glucose Normal Normal mg/dL White Blood Count 10.5 4.4-10.8 10^3/uL Red Blood Count 3.30 L 4.0-5.20 10^6/uL Hemoglobin 10.6 L 12.2-16.2 g/dL Hematocrit 32.0 L 36.0-46.0 % Mean Corpuscular Volume 96.9 80.0-100.0 fL Mean Corpuscular Hemoglobin 32.0 28.0-32.0 pg Mean Corpuscular Hemoglobin Concent 33.1 32.0-36.0 g/dL Red Cell Distribution Width 13.5 11.8-14.3 % Platelet Count 341 140-450 10^3/uL Mean Platelet Volume 7.5 6.9-10.8 fL Neutrophils (%) (Auto) 79.3 37.0-80.0 % Lymphocytes (%) (Auto) 9.8 L 10.0-50.0 % Monocytes (%) (Auto) 7.8 0.0-12.0 % Eosinophils (%) (Auto) 2.5 0.0-7.0 % Basophils (%) (Auto) 0.6 0.0-2.0 % Neutrophils # (Auto) 8.3 1.6-8.6 10 ^3/uL Lymphocytes # (Auto) 1.0 0.4-5.4 10 ^3/uL Monocytes # (Auto) 0.8 0-1.3 10 ^3/uL Eosinophils # (Auto) 0.3 0-0.8 10 ^3/uL Basophils # (Auto) 0.1 0-0.2 10 ^3/uL Nucleated Red Blood Cells 0.0 % Sodium Level 132 L 136-145 mmol/L Potassium Level 4.6 3.5-5.1 mmol/L Chloride Level 102 98-107 mmol/L Carbon Dioxide Level 23 20-31 mmol/L Anion Gap 7 5-15 Blood Urea Nitrogen 17 9-23 mg/dL Creatinine 1.03 H 0.550-1.02 mg/dL Glomerular Filtration Rate Calc 57 >90 mL/min BUN/Creatinine Ratio 16.5 10.0-20.0 Serum Glucose 103 74-106 mg/dL Lactic Acid Level 0.9 0.4-2.0 mmol/L Calcium Level 8.7 8.7-10.4 mg/dL EXAM: CT THORACIC SPINE WO CONTRAS INDICATION: r/o abscess COMPARISON: THORACIC SPINE WO CONTRAS on DOS: 12/10/19 TECHNIQUE: Multiple axial CT images of the thoracic spine were obtained using bone algorithm. Axial and coronal reformatting was done. Bone and soft tissue windows were reviewed. Radiation Dose Information: CT Dose: CTDI volume is 35.91 mGy. Dose-length product is 3104.02 mGy*cm FINDINGS: No CT evidence of acute fracture or traumatic mal-alignment. The visualized paraspinal soft tissues are grossly unremarkable. [id number] There is multilevel degenerative change of the spine, with disc space narrowing, subchondral sclerosis, and marginal osteophyte formation. IMPRESSION: No CT evidence of acute fracture or traumatic mal-alignment of the bony thoracic spine. At the level of L1 through L5, there is phlegmonous collection with foci of air measuring 3 cm. Infection can not be excluded. No evidence for osteomyelitis. EXAM: CT LS SPINE WO CONTRAST HISTORY: r/o abscess COMPARISON: CT LS SPINE WO CONTRAST on DOS: 07/08/23, LS SPINE WO CONTRAST on DOS: 01/29/20, LS SPINE WO CONTRAST on DOS: 12/10/19 CTDIvol 33.8 mGy, DLP 31 104 mGy*cm. TECHNIQUE: Multiple axial CT images of the spine were obtained using bone algorithm. Axial and coronal reformatting was done. Bone and soft tissue windows were reviewed. FINDINGS: There is a dextroconvex curvature of the thoracolumbar spine. The bones are generally osteopenic. The patient has undergone L5 S1 discectomy with interbody spacer device, screw fixation of the anterior aspect of the sacrum. Interbody spacer devices are noted at L2-3 and L3-4 as well as screw tracts within the L3 and L4 vertebral bodies. The patient is post laminectomy from L2-L5. There is fluid noted within the subcutaneous tissues as well as within the laminectomy bed and deep posterior paraspinal soft tissues. Lack of intravenous contrast significantly limits assessment for drainable fluid collection.. There is a grade 1 L5-S1 spondylolisthesis. There is multilevel lumbar spondylosis noted with disc bulging and osteophyte, facet arthropathy and ligamentous thickening. 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 The finding was present on prior MRI imaging from 2022. IMPRESSION: 1. Postsurgical and spondylotic changes in the lumbar spine. 2. Posterior paraspinal fluid collections May relate to recent surgery. Lack of intravenous contrast limits assessment. 3. Dissecting aneurysm incidentally noted at the aortic hiatus measuring 4.1 cm. The finding was present in 2022.. Assessment/Plan Assessment/Plan Assessment/Plan: Intractable abdominal pain rule out osteomyelitis Anemia Hyponatremia UTI ISSA Labs IV antibiotics-clindamycin + ceftriaxone Pain management UA CT lumbar spine CT thoracic spine Lactic Blood cultures BNP ESR CRP Wound culture Wound consult Protonix A.m. labs Antiemetics Dissecting aneurysm at the aortic hiatus measuring up to 4.1 cm Vascular consult Chronic hypertension Continue home medications Chronic hyperlipidemia Continue home medication GERD Protonix Rheumatoid arthritis Continue home medications History of TIA Monitor History of asthma P.r.n. respiratory treatments History of TKA Follow up outpatient with PCP History of CHF Strict I&Os Daily weights History of scoliosis Follow up outpatient with PCP Substance abuse Counseled patient on cessation of substance abuse Obesity Counseled patient on lifestyle modifications, diet, and exercise FEN/PPX diet hl DVT prophylaxis - not indicated patient ambulating PUD prophylaxis -Protonix Admit to [facility] Home medications reconciled Discussed plan of care with patient and nurse Plan discussed with: Patient My Orders Orders - CHIQUIS DE JESUS Procedure Category Date Status Time Clindamycin Ivpb PHA 12/23/24 Verified Cleocin 14:00 Ceftriaxone Ivpb PHA 12/24/24 Verified Rocephin 09:00 B-Type Natriuretic LAB 12/23/24 Verified Peptide 09:42 * Wound Consult CONS 12/23/24 Verified Wound Culture W/ Gs JOCELYNE 12/23/24 Verified 09:42 Admit ADMIT 12/23/24 Verified 09:42 Allergies YUSUF 12/23/24 Verified 09:42 Code Status CODE 12/23/24 Verified 09:42 Hydrocodone-Acet PHA 12/23/24 Verified 5/325mg Tab ([place] 09:45 Ondansetron Hcl PHA 12/23/24 Verified (Zofran) 09:45 Complete Blood Count LAB 12/24/24 Verified 04:00 Comprehensive LAB 12/24/24 Verified Metabolic Panel 04:00 Cardiac DIET 12/23/24 Verified Diet-2gna,Lofat,Lochol Lunch Acetaminophen Tablet PHA 12/23/24 Verified (Tylenol Tablet) 09:45 Erythrocyte LAB 12/23/24 Verified Sedimentation Rate 09:42 C-Reactive Protein LAB 12/23/24 Verified 09:42 Date of Service: Dec 23, 2024 Billing Provider: CHIQUIS DE JESUS Common Visit Codes: [id number] INP/OBS CARE (HIGH) CHIQUIS DE JESUS Dec 23, 2024 09:49
[2024-12-23 10:11] VITALS: TEMP 97.8
[2024-12-23] MEDS ORDERED: ALBUTEROL SULF 2.5 MG/0.5ML(0.5%) NEB SOLN NEB PRN (10:15)
[2024-12-23] MEDS ORDERED: IPRATROPIUM BROM 0.5 MG/2.5ML INH SOL NEB PRN (10:15)
[2024-12-23 10:41] VITALS: O2SAT 98
[2024-12-23] MEDS: PANTOPRAZOLE 40 MG/10 ML VIAL INJ IV SCH (10:52)
[2024-12-23 11:04] VITALS: BP 127/48; PULSE 91; RESP 16; O2SAT 98
[2024-12-23 11:11] LABS: Erythrocyte Sedimentation Rate 94 mm/hr (0-20)
[2024-12-23] MEDS ORDERED: CLIN1CAP70 PO (12:54)
[2024-12-23] MEDS ORDERED: AUG875T PO (12:54)
[2024-12-23] MEDS ORDERED: CLINDAMYCIN 600MG IV 50 ML IV SCH (14:00)
[2024-12-24] MEDS ORDERED: cefTRIAXone 1GM/50ML D5W 50 ML IV SCH (09:00)
== END 2024-12-23 14:34 | disposition left against medical advice (07) ==
LOC: ER 13:23 → EDUNIT# 13:23 → EDBD 13:23 → UNDOADMIN 12-23 09:42 → OVERFLOW 12-23 09:42 → UNDODISIN 12-23 14:35
DX: M46.24 Osteomyelitis of vertebra, thoracic region (principal); L02.212 Cutaneous abscess of back [any part, except buttock and flank]; I11.0 Hypertensive heart disease with heart failure; I50.9 Heart failure, unspecified; Z86.73 Personal history of transient ischemic attack (TIA), and cerebral infarction without residual deficits; Z90.710 Acquired absence of both cervix and uterus; Z87.891 Personal history of nicotine dependence; Z79.82 Long term (current) use of aspirin; Z79.899 Other long term (current) drug therapy; Z88.2 Allergy status to sulfonamides; Z88.8 Allergy status to other drugs, medicaments and biological substances
CPT/HCPCS: 36415; 72128; 72131; 80048; 81001; 83605; 83880; 85025; 85652; 86141; 87040; 96365; 96366; 96367; 96375; 99285; J0696; J2470; J3490; G0378